=== PATIENT | female | born 1960 | race Caucasian/White ===

== ENCOUNTER → 2020-11-13 12:33 | Outpatient (CLI) | payer MEDICAID, SELFPAY ==
--- NOTE | 2020-11-13 12:34 | VDUE_ITS ---
Reason For Study: Pre-op vein mapping Right Arm Left Arm Right cephalic vein is compressible. Left cephalic vein is compressible. Right Cephalic Vein at the shoulder Left Cephalic Vein at the shoulder measures .55 x .56 cm. measures .47 x .52 cm. Right Cephalic Vein mid bicep measures .67 Left Cephalic Vein at mid bicep measures .68 x .64 cm. x .7 cm. Right Cephalic Vein above antecub Left Cephalic Vein above antecub measures .77 measures .71 x .82 cm. x .81 cm. Right Cephalic Vein below antecub Left Cephalic Vein below antecub measures .41 measures .34 x .34 cm. x .42 cm. Right Cephalic Vein in the forearm Left Cephalic Vein in the forearm measures .47 x .47 cm. measures .36 x .34 cm. Right Cephalic Vein at the wrist measures .35 Left Cephalic Vein at the wrist measures .36 x .35 cm. x .34 cm. Multiple branches noted coming off of the Multiple branches noted coming off of the Cephalic Vein. Cephalic Vein. Right basilic vein is compressible. Left basilic vein is compressible. Right Basilic Vein mid bicep measures .36 Basilic vein at bicep measures .35 x .4 cm. x .37 cm. Basilic vein above antecub measures .38 x .37 Right Basilic Vein above antecub measures .43 cm. x .47 cm. Basilic vein below antecub measures .37 x .36 Right Basilic Vein below antecub measures .34 cm. x .38 cm. Basilic vein in the forearm measures .21 Right Basilic Vein in the forearm x .19 cm. measures .29 x .27 cm. Basilic vein at the wrist measures .14 x .15 Right Basilic Vein at the wrist measures .11 cm. x .12 cm. Brachial art .52 x .45 cm. Brachial art .36 x .39 cm. Brachial art 133.2 cm/s. Brachial art 133.4 cm/s. Radial art .16 x .19 cm. Radial art .18 x .2 cm. Radial art 180.3 cm/s. Radial art 128.1 cm/s. VL/Saphenous Vein Mapping, Bilat Interpretation Summary Patent and compressible bilateral upper extremity cephalic and basilic veins wi th dimensions as noted. Special note is made of multiple branches emanating from bilateral cepha lic veins. Bilateral radial arteries are borderline small and have increased velocities. Bilateral brachial arteries are of more normal diameter and flow Ordering Physician: Inder Lopez Performed By: Celestino Rajput, RVT ?
== END ==
PROVIDERS: PCP Physician Assistant Medical; Visit Provider Surgery
DX: Z01.818 Encounter for other preprocedural examination (principal); N18.9 Chronic kidney disease, unspecified
CPT/HCPCS: 93970

== ENCOUNTER 2020-12-18 05:57 | Day surgery (SDC) | payer MEDICAID, SELFPAY ==
--- NOTE | 2020-12-14 10:53 | EKG12_ITS ---
Test Reason : PREOP Blood Pressure : / mmHG Vent. Rate : 060 BPM Atrial Rate : 060 BPM P-R Int : 188 ms QRS Dur : 112 ms QT Int : 444 ms P-R-T Axes : 030 -30 081 degrees QTc Int : 444 ms Sinus rhythm with occasional Premature ventricular complexes Left axis deviation Abnormal ECG Confirmed by FENG LUKE, RYAN ([id number]), online editor TAMERA BISHOP ([id number]) on 12/18/2020 7:49:40 AM Referred By: Inder Lopez Confirmed By:RYAN TONEY MD
[2020-12-14 11:39] LABS: Hematocrit 30.9 % (37-47); Hemoglobin 9.5 g/dL (12.0-15.0); Mean Corp Hgb Conc 30.7 g/dL (32-36); Mean Corpuscular Hgb 28.9 pg (27.0-32.0); Mean Corpuscular Volume 93.9 fL (81-99); Mean Platelet Vol. 10.3 fl (6.2-12.0); Platelet Count 208 K/mm3 (150-450); RBC Distribution Width CV 13.5 % (11.6-14.6); RBC Distribution Width SD 46.4 fl (35.1-43.9); Red Blood Count 3.29 M/mm3 (4.2-5.4); White Blood Count 8.4 K/mm3 (4.4-11.0)
[2020-12-14 12:19] LABS: Anion Gap 7 (5-15); BUN 87 mg/dL (7-18); BUN/Creat Ratio 26.9 RATIO (10-20); Calcium,Total 8.9 mg/dL (8.5-10.1); Chloride 107 mmol/L (98-107); Creatinine, Serum 3.24 mg/dL (0.55-1.02); EST Glomerular Filtration Rate 16 mL/min (>60); Est Glom Filt Rate - Afr Amer 19 mL/min (>60); Glucose 97 mg/dL (74-106); Potassium 4.4 mmol/L (3.5-5.1); Sodium Level 141 mmol/L (136-145)
[2020-12-18 06:38] VITALS: BP 188/94; PULSE 62; RESP 20; TEMP 36.5; O2SAT 99; BMI 66.9
--- NOTE | 2020-12-18 07:05 | PCM.HP.BLA ---
History and Physical Date of Admission: 12/18/20 Visit Reasons: FISTULA PLACEMENT. 11/01 [facility] Chief Complaint: fistula Dance Therapist Required: No Is patient in pain?: No Allergies amoxicillin Allergy (Mild, Verified 11/22/20 09:52) PT UNSURE OF REACTION piperacillin Allergy (Mild, Verified 11/22/20 09:52) PT UNSURE OF REACTION tetracycline Allergy (Mild, Verified 11/22/20 09:52) Other Medications acetaminophen 500 mg oral powder packet 500 mg PO Q6H PRN 11/22/20 [History Confirmed 11/22/20] albuterol sulfate 90 mcg/actuation aerosol inhaler gm INHALATION 11/22/20 [History Confirmed 11/22/20] allopurinol 100 mg tablet ea PO 11/22/20 [History Confirmed 11/22/20] amlodipine 5 mg tablet ea PO 11/22/20 [History Confirmed 11/22/20] aspirin 81 mg tablet,delayed release 81 mg PO DAILY 11/22/20 [History Confirmed 11/22/20] atenolol 50 mg tablet 50 mg PO BID 11/22/20 [History Confirmed 11/22/20] calcitriol 0.25 mcg capsule ea PO 11/22/20 [History Confirmed 11/22/20] famotidine 20 mg tablet ea PO 11/22/20 [History Confirmed 11/22/20] furosemide 40 mg tablet ea PO 11/22/20 [History Confirmed 11/22/20] gabapentin 600 mg tablet ea PO 11/22/20 [History Confirmed 11/22/20] insulin glargine 100 unit/mL subcutaneous solution 20 unit SUBCUT BID 11/22/20 [History Confirmed 11/22/20] mometasone-formoterol HFA 100 mcg-5 mcg/actuation aerosol inhaler 2 puff INHALATION BID 11/22/20 [History Confirmed 11/22/20] simvastatin 40 mg tablet 40 mg PO DAILY 11/22/20 [History Confirmed 11/22/20] ustekinumab 90 mg/mL subcutaneous syringe 90 mg SUBCUT Q4W 11/22/20 [History Confirmed 11/22/20] [facility] Medical History (Updated 11/22/20 @ 13:[address] Inder Lopez MD) Asthma Chronic kidney disease COPD (chronic obstructive pulmonary disease) Depression Diabetes Emphysema lung GERD (gastroesophageal reflux disease) Gout HTN (hypertension) Renal failure Surgical History S/P tonsillectomy S/P tubal ligation Family History Mother Hypertension Social History Smoking Status: Former smoker alcohol intake: never HPI HPI HPI: NAT ZENG, is a 60 F who presents to the office today for surgical consultation regarding creation of arteriovenous hemodialysis fistula. The patient is referred by Dr. Frederic Willson and a written copy of my surgical consult recommendations will return to him. By report the patient has a long-term history of diabetes mellitus and hypertension and morbid obesity. Please note body weight is 365 pounds with a BMI of 66.7. The patient has not had COVID-19. She has not been vaccinated. She is on oxygen therapy 24 hours daily at 2 L/min or through her CPAP mask. November 13, 2020 Reason For Study: Pre-op vein mapping Right Arm Left Arm Right cephalic vein is compressible. Left cephalic vein is compressible. Right Cephalic Vein at the shoulder Left Cephalic Vein at the shoulder measures .55 x .56 cm. measures .47 x .52 cm. Right Cephalic Vein mid bicep measures .67 Left Cephalic Vein at mid bicep measures .68 x .64 cm. x .7 cm. Right Cephalic Vein above antecub Left Cephalic Vein above antecub measures .77 measures .71 x .82 cm. x .81 cm. Right Cephalic Vein below antecub Left Cephalic Vein below antecub measures .41 measures .34 x .34 cm. x .42 cm. Right Cephalic Vein in the forearm Left Cephalic Vein in the forearm measures .47 x .47 cm. measures .36 x .34 cm. Right Cephalic Vein at the wrist measures .35 Left Cephalic Vein at the wrist measures .36 x .35 cm. x .34 cm. Multiple branches noted coming off of the Multiple branches noted coming off of the Cephalic Vein. Cephalic Vein. Right basilic vein is compressible. Left basilic vein is compressible. Right Basilic Vein mid bicep measures .36 Basilic vein at bicep measures .35 x .4 cm. x .37 cm. Basilic vein above antecub measures .38 x .37 Right Basilic Vein above antecub measures .43 cm. x .47 cm. Basilic vein below antecub measures .37 x .36 Right Basilic Vein below antecub measures .34 cm. x .38 cm. Basilic vein in the forearm measures .21 Right Basilic Vein in the forearm x .19 cm. measures .29 x .27 cm. Basilic vein at the wrist measures .14 x .15 Right Basilic Vein at the wrist measures .11 cm. x .12 cm. Brachial art .52 x .45 cm. Brachial art .36 x .39 cm. Brachial art 133.2 cm/s. Brachial art 133.4 cm/s. Radial art .16 x .19 cm. Radial art .18 x .2 cm. Radial art 180.3 cm/s. Radial art 128.1 cm/s. VL/Saphenous Vein Mapping, Bilat Interpretation Summary Patent and compressible bilateral upper extremity cephalic and basilic veins with dimensions as noted. Special note is made of multiple branches emanating from bilateral cephalic veins. Bilateral radial arteries are borderline small and have increased velocities. Bilateral brachial arteries are of more normal diameter and flow Ordering Physician: Inder Lopez Performed By: Celestino Rajput RVT ? 11/13/20 [id number] Inder Lopez MD ROS General General: Yes fatigue; No weight change, appetite, colon cancer, breast cancer or weakness HEENT HEENT: No difficulty swallowing, eye injury, eye surgery, swollen glands or hoarseness Endo Endocrine: Yes diabetes mellitus; No thyroid disease, thyroid cancer, Hair loss, heat intolerance or cold intolerance Skin Skin: No rash or changing moles Breast Breast: No left breast lump, right breast lump, nipple discharge, breast pain, abnormal mammogram, abnormal US or breast enlargement Musc Musculoskeletal: Yes back problems, arthritis and gout; No rheumatoid arthritis or joint pain Cardio Cardiovascular: Yes heart disease and high blood pressure; No murmur, pacemaker, atrial fibrillation, heart attack, heart stent, palpitations, shortness of breat with exertion or chest pain Psych Psychiatric: Yes depression; No anxiety or hearing voices Resp Respiratory: Yes shortness of breath, Yes sleep apnea, No cough, Yes COPD, Yes asthma, Yes emphysema and No wheezing Gastro Gastrointestinal: No abdominal pain, No nausea or vomiting, No diarrhea, No constipation, No blood in stool, Yes acid reflux, No hemorrhoids, No ulcers, No gallbladder problem and No black,tarry stools Yair Hematologic: No blood thinners, No blood disorders, No bleeding, Yes anemia and No blood clots Neuro Neurologic: No system reviewed and no additional complaints, except as documented, No as per HPI, No abnormal gait, No abnormal hearing, No abnormal movements, No abnormal speech, No behavioral changes, No burning sensations, No confusion, No convulsions, No disequilibrium, No dizziness, No localized weakness, No frequent falls, No headache(s), No lack of coordination, No loss of vision, No memory loss, Yes numbness, No other visual disturbances, No radicular pain, No restless legs, No sensory deficit, No syncope, Yes tingling, No tremor(s), No weakness and No other Exam Const General: cooperative and no acute distress Nutritional Appearance: obese morbidly obese Other: Patient is in a wheelchair. She states she is able to walk some with a walker but limited because of knee pain. She is right arm dominant [facility] Head: normal to inspection Neck Neck: normal visual inspection Resp Other: Patient has nasal prong oxygen in place. Cardio Rate: regular rate Rhythm: regular rhythm Other: 2/6 systolic ejection murmur GI Other: Notably overweight with a very large overhanging pannus. I am not able to detect any organs Musc Other: Mild kyphosis Skin Other: Upper extremity skin is intact Neuro General: patient alert and patient awake Extrem Other: Bilateral upper extremities are very large. There are no visible superficial veins. I performed ultrasound inspection and I had a significant amount of difficulty identifying the forearm cephalic vein. I could not duplicate the size of the vein as suggested on preoperative vein mapping. I even had the patient hold her arm as dependent as she could and I could not duplicate the vein size. The veins are noted be very deep. At the antecubital space I could identify the cephalic and basilic veins. They are slightly closer to the surface. There are several centimeters of fibrofatty tissue however until fascia can be visualized. Assessment and Plan Assessment and Plan (1) Chronic renal failure, stage 4 (severe): Status: Chronic (2) Morbid obesity with BMI of 60.0-69.9, adult: Status: Acute Plan - Dr. Inder Lopez MD: After careful inspection of her nondominant left upper extremity I do not believe that I can get a forearm fistula established. The patient's body habitus and degree of weight that she carries in her arm is a significant challenge. I propose a transposition left upper arm cephalic vein to brachial artery arteriovenous hemodialysis fistula. Hopefully we can accomplish this with monitored anesthesia care and local anesthetic. The patient is aware that we might need to convert to a general anesthetic which could require intubation. She is aware of the potential risk of postoperative need for ventilator. No guarantees of success have been offered. She has had an opportunity to ask and have questions answered. We will schedule and proceed at her discretion. Her only anticoagulant is an 81 mg aspirin daily. Copy: Dr. Willson and SKYLER Hou M.D., F.A.C.S I have re-examined the patient. There are no clinical changes since date of exam.
--- NOTE | 2020-12-18 07:22 | EX.PCM.DISCH ---
Discharge Instructions Procedure Fistula Diet Discharge Diet: Renal Diet Activity Discharge Activity: May Not Drive (for 2-3 days or while taking narcotic pain medications.), May Shower and May Take a Tub Bath (in 5 days.) Lifting Restrictions: 5 pounds Keep extremity elevated above heart level: - (Keep arm elevated above the heart level for 3 days.) Dressing / Incision Call your doctor if your incision/area has: Continuous Slow Oozing, Sudden Increased Bleeding (apply pressure and call your doctor.), Increased Pain/ Swelling, Increased Redness and Foul Smelling Discharge Call your doctor if you observe: Fever of 101 or Higher Suture Line Care: Avoid Pulling/Pushing and Avoid Pinching/Bending Cleanse incision/area with: Keep Dressing Clean & Dry Additional Dressing/Incision Instructions:: Change or remove dressing in one day. May protect with a gauze bandaid. Follow Up Care Please Follow Up With: Inder Lopez MD When: Call [phone] to make an appointment for suture removal and follow up in 1 week. Test Results: Please schedule office appointment on December 24 with Maria E for staple removal Discharge Plan Admission Primary Reason for Your Visit: Stage IV chronic renal failure Attending Provider: Inder Lopez Primary Care Provider: Sherly Velasco Discharge Orders/Prescriptions Prescriptions: New hydrocodone-acetaminophen 5-325 mg tablet 1 tab PO Q6H PRN (Reason: pain) 2 Days Qty: 6 RF: 0 Continued amlodipine 5 mg tablet 5 mg PO DAILY RF: 0 albuterol sulfate 90 mcg/actuation HFA aerosol inhaler 2 puff inhalation DAILY PRN (Reason: COPD) RF: 0 calcitriol 0.25 mcg capsule 0.25 mcg PO BID RF: 0 gabapentin 600 mg tablet 600 mg PO BID RF: 0 allopurinol 100 mg tablet 100 mg PO DAILY RF: 0 furosemide 40 mg tablet 80 mg PO BID RF: 0 famotidine 20 mg tablet 20 mg PO BID RF: 0 Lantus U-100 Insulin 100 unit/mL solution 40 unit subcut BID RF: 0 Dulera 100-5 mcg/actuation HFA aerosol inhaler 2 puff inhalation BID RF: 0 simvastatin 40 mg tablet 40 mg PO DAILY RF: 0 atenolol 50 mg tablet 50 mg PO BID RF: 0 aspirin 81 mg tablet,delayed release (DR/EC) 81 mg PO DAILY RF: 0 Stelara 90 mg/mL syringe 90 mg subcut .[id number] RF: 0 acetaminophen 500 mg Tablet 1,000 mg PO Q6H PRN (Reason: Pain) RF: 0 clonidine HCl 0.2 mg tablet 0.2 mg PO BID RF: 0 ergocalciferol (vitamin D2) [Vitamin D2] 1,250 mcg (50,000 unit) Capsule 1,250 mcg PO QWEEK RF: 0 Referrals / Follow Up: Sherly Velasco PA [Primary Care Provider] - Disposition Disposition (needs filled in before D/C Order can be placed): Home, Self Care
[2020-12-18 08:40] LABS: Bedside Glucose 110 mg/dL (70-110)
[2020-12-18 09:55] LABS: Bedside Glucose 88 mg/dL (70-110)
[2020-12-18] MEDS: Lidocaine 1% (30 ml sdv) 30 ML Vial (10:00)
[2020-12-18] MEDS: Lidocaine 0.5% (50 ml) 50 ML Vial (10:00)
[2020-12-18] MEDS: Bupivacaine Mpf 0.5% 30 ML VIAL (10:00)
[2020-12-18] MEDS: Heparin Injection (Vial) 5,000 UNIT/ML VIAL 5000 UNIT (10:00)
[2020-12-18] MEDS: Protamine Sulfate 50 MG/5 ML Vial IV (10:12)
--- NOTE | 2020-12-18 10:40 | PCM.OPRPT ---
Problems Associated Problem List Diagnoses (1) Chronic renal failure, stage 4 (severe): Report of Operation Date of Procedure: 12/18/20 Pre-Operative Diagnosis: Stage IV chronic renal insufficiency Post-Operative Diagnosis: Same Surgery/Procedure Performed:: Transposition left upper arm cephalic vein to brachial artery arteriovenous hemodialysis fistula creation: Increased difficulty secondary to body habitus. 3 hours surgery Description of Surgical Findings:: Timeout informed consent was obtained. 60-year-old female was taken to the operative room placed upon the table. Because of body habitus will use the airlift to move her from the stretcher to the table. The patient was not able to breathe lying supine so that that had to be placed in a reverse Trendelenburg position. Clindamycin 900 g were given intravenously. The left upper extremity was sterilely prepped and draped. Throughout the procedure 50 cc of 1/2% lidocaine and 20 cc of 1% lidocaine mixed 50-50 with 0.5% Marcaine was used as local anesthetic. Ultrasound mapping of the course of the cephalic vein in the upper arm and at the antecubital space was performed. Local was instilled a longitudinal incision was made along the left upper arm tedious sharp and blunt dissection was used to identify the cephalic vein. Side branches were secured with hemoclips and 4-0 Vicryl ligatures were indicated. The dissection performed all the way up to the shoulder. The vein was measured. Initially try to find the brachial artery in the distal third of the left upper arm but again secondary to body habitus felt this was not going to be effective. So I instilled local in the proximal left forearm made a small skin bridge and then further dissected the cephalic vein out onto the proximal volar forearm. So doing again Constantino 6 to 8 cm. The vein was ink marked. It was ligated distally. It was irrigated. Appear to have adequate dimension. Couple sideholes were secured with [id number] suture of 7-0 Prolene. Then sharp and blunt dissection used to identify the brachial artery at the antecubital space. Circumferential control was obtained. A tunneler was placed from the antecubital space to the proximal shoulder. The vein was ligated in the forearm with a Hemoclip then it was tunneled taking care to assure no twisting. It was tunneled from the shoulder to the antecubital space. [place] that I had good position MRI. It irrigated well. There was no tension. Patient received 12,000 units of heparin. Peripheral vascular clamps were placed on the brachial artery and 11 blade was used to make an arteriotomy the vein was cut to length and spatulated and end-to-side anastomosis was created with running 7-0 Prolene. Very nice anastomosis was achieved with excellent flow. There was a palpable thrill. Because of the patient's body habitus I was not able to palpate radial pulse but was able to use a Doppler and detect a palmar arch triphasic flow. The hand is warm and viable. The vein was inspected was noted to be in the good position. The patient received 30 mg of protamine as reversal. The subcutaneous dissection of the upper arm was very significant and extended almost 5 to 6 cm deep. Wounds were closed with interrupted 3-0 Vicryl deep suturing and subdermal stitching. The skin edges were approximated with a running septic or 4 Monocryl. Because of the weight of the surrounding tissues I did elect to place interspersed surgical kaylynn. And Telfa was applied followed by ice soft roll and Jase wrap. Sponge and instrument and needle counts were reported to certainly be correct. Specimens none. Drains none. Blood loss 200 cc. The patient was taken to recovery area in satisfactory edition upon complication Inder Lopez M.D., F.A.C.S. Surgeon: Inder Lopez Type of Anesthesia: Local MAC Anesthesiologist: Dharmesh Bland
[2020-12-18 11:00] VITALS: BP 155/45; BP 188/94; PULSE 60; RESP 18; TEMP 36.4; O2SAT 99
[2020-12-18 11:05] VITALS: BP 166/54; BP 188/94; PULSE 60; RESP 18; O2SAT 99
[2020-12-18 11:10] VITALS: BP 151/59; BP 188/94; PULSE 58; RESP 18; O2SAT 100
[2020-12-18 11:15] VITALS: BP 156/59; BP 188/94; PULSE 59; RESP 18; TEMP 36.4; O2SAT 98
[2020-12-18 12:10] VITALS: BP 157/49; BP 188/94; PULSE 62; RESP 18; TEMP 36.6; O2SAT 88
[2020-12-18 12:25] LABS: Bedside Glucose 139 mg/dL (70-110)
== END 2020-12-18 12:29 | disposition home or self-care (01) ==
LOC: SDC 05:57 → AC 05:57
PROVIDERS: PCP Physician Assistant Medical; Referring Provider Surgery; Visit Provider Surgery
PROC: (CPT 36818; principal; 2020-12-18 07:15)
DX: I12.9 Hypertensive chronic kidney disease with stage 1 through stage 4 chronic kidney disease, or unspecified chronic kidney disease (principal); E11.22 Type 2 diabetes mellitus with diabetic chronic kidney disease; N18.4 Chronic kidney disease, stage 4 (severe); E66.01 Morbid (severe) obesity due to excess calories; Z68.44 Body mass index [BMI] 60.0-69.9, adult; J44.9 Chronic obstructive pulmonary disease, unspecified; F32.A Depression, unspecified; K21.9 Gastro-esophageal reflux disease without esophagitis; M10.9 Gout, unspecified; Z79.4 Long term (current) use of insulin; Z79.82 Long term (current) use of aspirin; Z79.899 Other long term (current) drug therapy; Z87.891 Personal history of nicotine dependence
CPT/HCPCS: 36818; 36415; 80048; 82962; 85027; 87426; 93005; C9803; J7040